=== PATIENT | male | born 1980 | race Caucasian/White ===

== ENCOUNTER → 2019-05-21 | Outpatient (CLI) | payer OTHER ==
[2019-05-21 17:12] LABS: POTASSIUM 4.1 mmol/L (3.5-5.1)
[2019-05-21 17:13] LABS: CALCIUM 9.9 mg/dL (8.3-10.5)
== END ==
LOC: LAB 16:47
PROVIDERS: Family Medicine
DX: Z00.00 Encounter for general adult medical examination without abnormal findings (principal)

== ENCOUNTER 2021-08-07 21:01 | Emergency (ER) | payer OTHER ==
[~2021-08-07] VITALS: Ht 185.4 cm; Wt 106.8 kg
[2021-08-07] MEDS ORDERED: FLONASE ALLERG9.9 ML NS (21:14)
[2021-08-07] MEDS ORDERED: ALLEGRA ALLERG180 MG PO (21:14)
[2021-08-07] MEDS ORDERED: PROVENTIL0.09 MG/A1 IH (21:14)
[2021-08-07 22:19] LABS: BASO # 0.03 K/mm3 (0.02-0.10); EOS # 0.62 K/mm3 (0.04-0.40); EOS % 4.9 % (0.0-4.0); HEMATOCRIT 46.9 % (42.0-52.0); HEMOGLOBIN 16.1 g/dL (13.5-18.0); LYMPH# 2.37 K/mm3 (1.50-4.00); MEAN CELL VOLUME 85 fl (78-100); MEAN CORPUSCULAR HEMOGLOBIN 29 pg (27-31); MEAN CORPUSCULAR HGB CONC 34 g/dL (33-37); MEAN PLATELET VOLUME 10.3 fl (7.4-10.4); NEU # 8.79 K/mm3 (1.40-6.50); PLATELET COUNT 269 K/mm3 (130-400); RED BLOOD COUNT 5.52 M/mm3 (4.20-5.60); RED CELL DISTRIBUTION WIDTH 12.6 % (11.5-14.5); WHITE BLOOD COUNT 12.8 K/mm3 (4.8-10.8)
[2021-08-07] MEDS ORDERED: PREDNISONE20 M1 PO (22:45)
[2021-08-07 22:54] VITALS: BP 127/79
== END 2021-08-07 22:54 | disposition home or self-care (01) ==
LOC: ED 21:01
PROVIDERS: Family Medicine
DX: J45.909 Unspecified asthma, uncomplicated (principal); Z20.822 Contact with and (suspected) exposure to COVID-19; Z79.899 Other long term (current) drug therapy
CPT/HCPCS: J2920